=== PATIENT | male | born 1935 | race Caucasian/White ===

== ENCOUNTER → 2016-12-05 | Outpatient (CLI) | payer MEDICARE, BC ==
[~2016-12-05] MED LIST: AMLO5TAB2 PO; ANUS25SU PR; ATOR1TAB21 PO; CLOP75TA2 PO; COZA1TAB PO; FERR325T3 PO; FLAG500T PO; FURO40TA2 PO; GLIP5TAB8 PO; LABE10TAB PO; LABE20TAB PO; LEVA250T PO; PANT40TA2 PO; SODI650T PO; SUCR1TA PO; VITA-122 PO; ZOCO40TA PO
--- NOTE | 2016-12-05 09:19 | REP ---
CT abdomen pelvis without IV or bowel contrast: The patient reportedly has a rising PSA and history of prostate carcinoma. Additionally, the patient has a history of colon resection and is reportedly a dialysis patient. There are no comparison studies. The visualized lung lee are unremarkable. The unenhanced hepatic parenchyma demonstrates a 14 mm hypodensity in the left lobe of the liver, nonspecific, possibly a cyst. The gallbladder, pancreas and spleen are unremarkable. The adrenals are unremarkable. There is renal cortical atrophy of the kidneys bilaterally. There is hydronephrosis and hydroureter bilaterally. No ureteral calculi are identified. There are bilateral renal calculi, likely vascular atheroma. There are bilateral renal parapelvic cysts. There is an exophytic 2.7 cm left renal cortical cyst. The abdominal aorta is unremarkable except for calcified atheroma. There is no retroperitoneal adenopathy. There appears to have been a colectomy with the surgical anastomosis at the rectosigmoid colon. Additionally there is an anastomotic staple ring in the right lower quadrant. There is no bowel distension. Pelvis: There is no ascites or adenopathy. The bladder is collapsed and cannot be further assessed. I suspect there is left iliac adenopathy measuring up to 18 mm and left internal iliac adenopathy measuring up to 15 mm. There is left external iliac adenopathy measuring up to 21 mm. No pelvic ascites is identified. No lytic, blastic or destructive skeletal changes are identified in the lumbar spine or pelvis. 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 Impression: There is left iliac, internal iliac, and external iliac adenopathy in the pelvis. There is no ascites. There is evidence for bowel surgery as described. There is no bowel distension. There is bilateral renal cortical atrophy and bilateral hydronephrosis and hydroureter. No ureteral calcifications are identified. Multiple bilateral renal cysts are noted. There are renal calcifications, likely vascular. There is no bowel distension. There is a small fat-containing umbilical hernia. There is a 14 mm hypodensity in the left lobe of the liver, nonspecific. No evidence of skeletal metastases. Signed by Brian Knight MD 12/05/2016 09:10 A
--- NOTE | 2016-12-05 10:59 | REP ---
Whole body radionuclide bone scan: Whole body imaging is performed in AP and PA projections. Additionally oblique views of the ribs and pelvis are performed in lateral views of the skull are performed. Comparison is 08/18/2012. The focal uptake noted in the right maxillary region previously is no longer present. There is new focal uptake in the posterior arches of the left approximate 7th, 8th and 11th ribs as an interval change. No other rib uptake is identified. There is no calvarial uptake. There is bilaterally symmetric uptake in the shoulders, compatible with degenerative change. There is bilateral symmetric uptake in the sternoclavicular joints, unchanged, and uptake in the sternomanubrial joint, unchanged, likely degenerative uptake. There is uptake along the medial joint lines of the knees bilaterally compatible with osteoarthritis. This has increased from the prior study. There is lumbar scoliosis convex left, unchanged. Impression: New focal uptake in the posterior arches of the left seventh, eighth and eleventh ribs, nonspecific: Post-traumatic versus metastatic. There is a degenerative pattern of uptake in the shoulders, sternoclavicular joints, sternomanubrial joint and knees bilaterally. The study is performed with 114.0 MBq of technetium labeled MDP. Signed by Brian Knight MD 12/05/2016 10:50 A
== END | disposition home or self-care (01) ==
LOC: M RAD 07:35
PROVIDERS: ATTEND Nurse Practitioner Family
DX: C61 Malignant neoplasm of prostate (principal); R97.21 Rising PSA following treatment for malignant neoplasm of prostate; K42.9 Umbilical hernia without obstruction or gangrene; R93.7 Abnormal findings on diagnostic imaging of other parts of musculoskeletal system; N13.30 Unspecified hydronephrosis; N13.4 Hydroureter
CPT/HCPCS: 74176; 78306; A9503

== ENCOUNTER → 2017-03-14 | Outpatient (CLI) | payer MEDICARE, BC ==
--- NOTE | 2017-03-15 11:00 | RADONC ---
RADIATION ONCOLOGY CONSULTATION NOTE: DATE: 03/14/2017 CHART NUMBER: [id number]. DIAGNOSIS: Prostate cancer. STAGE: IV, metastatic. ECOG PERFORMANCE STATUS: Zero CONSULTATION NOTE: Mr. 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 HISTORY OF PRESENT ILLNESS: The patient was in his usual state of health and apparently underwent cryosurgical ablation of his prostate on 05/14/2017 for what was noted to be a Redcrest score 5 adenocarcinoma of the left lobe of the prostate. Since that time, he developed a biochemical recurrence and has been followed by Dr. Blanc. A bone scan was done on 05/29/2017, which showed new focal uptake in the posterior arches of the left 7th, 8th and 11th ribs, which were nonspecific. This was thought either be posttraumatic versus metastatic. The patient reports that he had fallen in the past and broken several of his left ribs. He reports that he has no pain at this time whatsoever and he says he does not know why he is here. The patient's family members also do not seem to understand why he was here. They say that they were told simply that he needs to come and see me in case he needs radiation in the future. PAST MEDICAL HISTORY: The patient's past medical history is positive for hypertension, diabetes, cardiac difficulties and a stroke. He had quadruple bypass in the past. He had a colon resection as well. He has had left knee surgery. ALLERGIES: The patient has NO KNOWN DRUG ALLERGIES. SOCIAL HISTORY: The patient had smoked two packs of cigarettes per day for 40 years. He does not abuse alcohol. FAMILY HISTORY: The patient's family history is negative for prostate cancer or other malignancies. REVIEW OF SYSTEMS: The patient's review of systems is largely noncontributory. He denies nausea, vomiting, fevers, chills, night sweats, diplopia, headaches, anxiety, depression , anorexia, weight loss, visual disturbances, chest pain, urinary or bowel difficulties, bone pain or neurological problems. PHYSICAL EXAMINATION: The patient is a well-developed, well-nourished male in no acute distress. HEENT exam is normocephalic, atraumatic. Extraocular movements are intact. There is no palpable cervical, supraclavicular, infraclavicular, axillary, or inguinal lymphadenopathy present. Lungs are clear to auscultation and percussion. Heart has a regular rate and rhythm. Abdomen is benign with no hepatosplenomegaly, masses, or tenderness. Rectal examination reveals a normal anal sphincter tone. Skeletal examination reveals no tenderness to pressure or percussion of the bony skeleton. Extremities reveal no clubbing, cyanosis, or edema. Neurologic exam is grossly intact, as is the remainder of the physical examination. IMAGING: I have personally reviewed the patient's bone scan done on 12/05/2016, which shows some increased uptake in the left 7th, 8th and 11th ribs. ASSESSMENT: At the present time, the patient reports absolutely no pain whatsoever. Indeed, he is rather confused as to why he is here. I explained to the patient and his family that radiation at this point would be palliative in nature. In light of the fact that there does not seem to be anything to palliate, I have not scheduled him for any treatment at this time. I have set up the patient for routine followup in our office in 6 months' time. I explained to the patient the need to contact me should any pain develop as it may be advantageous to treat any weightbearing bones or the ribs, which are rather small and can fracture easily early rather than wait for a fracture, at which case the quality of life will be diminished. I have given the patient my office number as well as cell phone number. In addition, we have given the patient the appointment as mentioned above. In the meantime, he will continue his close management and followup with his urologist, Dr. Blanc. cc: MD Naresh Tolentino MD *[facility]
== END ==
LOC: M ONCR 13:55
PROVIDERS: ATTEND Radiology Radiation Oncology
DX: C61 Malignant neoplasm of prostate (principal)

== ENCOUNTER → 2017-05-06 | Outpatient (CLI) | payer MEDICARE, BC ==
[~2017-05-06] MED LIST changes: +LEVA1TAB PO; -LEVA250T PO
[2017-05-06 09:46] LABS: MEAN CORPUSCULAR HEMOGLOBIN 29.8 pg (27.0-33.0); MEAN CORPUSCULAR VOLUME 90.4 fl (80.0-96.0); RED CELL DISTRIBUTION WIDTH 15.8 % (11.5-14.5); WHITE BLOOD COUNT 6.5 K/mm3 (4.0-10.0)
--- NOTE | 2017-05-06 10:43 | REP ---
REASON FOR EXAM: History of prostate carcinoma. Comparison exam 02/24/2017 also without contrast. The lack of intravenous contrast decreases the sensitivity of the exam. There are small bilateral pleural effusions which have developed since the last abdominal CT. Limited evaluation of the liver, gallbladder, spleen, pancreas, and adrenal glands show no changes from the prior exam and no evidence of acute disease. There is a small simple cyst in the lateral segment of the left lobe of the liver status quo. There is a stable low density nodule in the left adrenal gland which has been stable since 2013. There is unchanged right sided hydronephrosis and hydroureter. There is slightly increased left sided hydronephrosis and hydroureter. There are unchanged bilateral renal calcifications. There is a left renal cyst which has increased in size from 09/08/2014 but is unchanged from 12/05/2016. There is atherosclerotic change in the abdominal aorta status quo. There is para-aortic adenopathy unchanged from 02/24/2017 but representing a significant change from 12/05/2016. The bowel loops and mesenteries are within normal limits. No free fluid or free air is seen in the abdomen. CT PELVIS: There is left-sided pelvic side wall adenopathy stable from the last two prior exams 02/24/2017 and 12/05/2016 but representing a significant change from 09/08/2014. No free fluid or free air is seen in the pelvis. The pelvic bowel loops are unremarkable with the exception of already noted postoperative changes. Bone window technique throughout the exam shows chronic spinal and hip degenerative changes with bilateral L5 spondylolysis status quo. There is no CT evidence of interim development of a lytic or blastic lesion. There is an unchanged subcentimeter sized sclerotic density in the left ileum. That, however, represents a change from the 09/08/2014 exam. IMPRESSION: 1. Bilateral chronic renal changes as described above. 2. Retroperitoneal and pelvic adenopathy as described above. 3. Tiny focus of suspected skeletal blastic metastasis in the left ileum as described above. This needs to be correlated clinically with consideration made for followup with conventional bone scintigraphy. 4. Bilateral pleural effusions. 5. Other findings as described above. Signed by Sorin Eduardo DO 05/06/2017 11:01 A
--- NOTE | 2017-05-06 11:14 | REP ---
REASON: History of prostate cancer. COMPARISON: 03/12/2016 from [facility]. The lack of intravenous contrast decreases the sensitivity of the exam. Limited evaluation of the mediastinum and pulmonary phyllis show multiple nonenlarged lymph nodes which have increased in size from the prior exam. These are particular to the aortic pulmonary window and subcarinal region. There are bilateral pleural effusions which are small and represent a change from the prior exam. There is no pericardial effusion. Bone window technique throughout the exam shows spinal degenerative changes status quo. Seen in multiple thoracic vertebral bodies, focal areas of sclerosis are noted particularly in the posterior aspect of L1 on the right measuring 1.9 cm and representing a change from the prior exam. Evaluation of the lung lee show scattered basilar fibrotic changes status quo without evidence of interim development of a spiculated hepatic lesion or significant nodule which could be obscured by the aforementioned pleural effusions. IMPRESSION: 1. Although there is no evidence of arjun mediastinal or hilar adenopathy, there are multiple borderline mediastinal lymph nodes which have increased in size from the prior chest CT of 03/12/2016. This needs to be correlated clinically with appropriate followup. 2. Bilateral pleural effusions. 3. Lung field changes as described above. There is no revised Fleischner Society criteria on the recommendation for followup of such lung parenchymal findings. 4. Evidence of skeletal blastic metastasis as described above which could be better evaluated with conventional bone scintigraphy. 5. Other findings as described above. Signed by Sorin Eduardo DO 05/06/2017 11:15 A
[2017-05-06 11:38] LABS: ALBUMIN/GLOBULIN RATIO 0.77 (1.00-1.93); BILIRUBIN,TOTAL 0.6 MG/DL (0.2-1.0); CALCIUM LEVEL 8.3 MG/DL (8.8-10.2); CREATININE FOR GFR 6.89 MG/DL (0.70-1.30); GLOMERULAR FILTRATION RATE 8.3 (>35); POTASSIUM SERUM 3.9 MEQ/L (3.5-5.1); TOTAL PROTEIN 6.9 GM/DL (6.4-8.2)
--- NOTE | 2017-05-06 12:58 | REP ---
Whole body radionuclide bone scan: History: History of prostate carcinoma. Comparison study December 05, 2016. Comparison is also made with chest CT study from May 06, 2017. Scintigraphic findings: 22.0 mCi technetium 99m MDP is injected and standard whole body bone scan imaging was acquired. Scintigraphic findings: There is a normal distribution of skeletal tracer with uptake in bilateral kidneys and in the urinary bladder. Findings: There is a linearly adjacent uptake involving the left 8th through 11th ribs posteriorly consistent with healing fractures. There is one additional focus of increased uptake in the lateral aspect of the left 11th rib. This is not a pattern suspicious for hematogenous metastasis. Degenerative uptake is seen in the thoracic lumbar and cervical spine as before. There is no evidence of new scintigraphic area of increased uptake in the L1 vertebral body to correspond with the recent CT finding. There is osteoarthritic uptake in the medial compartment of each knee. No suspicious skeletal uptake is appreciated. Impression: Findings consistent with healing left posterior rib fractures. No evidence to suggest skeletal metastatic disease. Signed by Shai Ramos MD 05/06/2017 03:49 P
== END ==
LOC: M RAD 08:53
PROVIDERS: ATTEND Urology
DX: Z85.46 Personal history of malignant neoplasm of prostate (principal); R59.9 Enlarged lymph nodes, unspecified; J90 Pleural effusion, not elsewhere classified; S22.42XD Multiple fractures of ribs, left side, subsequent encounter for fracture with routine healing; R93.7 Abnormal findings on diagnostic imaging of other parts of musculoskeletal system; X58.XXXD Exposure to other specified factors, subsequent encounter; Y92.9 Unspecified place or not applicable; Y93.9 Activity, unspecified; Y99.9 Unspecified external cause status
CPT/HCPCS: 36415; 71250; 74176; 78306; 80053; 84153; 85027; A9503

== ENCOUNTER → 2017-09-23 | Outpatient (REF) | payer MEDICARE, BC ==
[2017-09-23 16:19] LABS: MEAN CORPUSCULAR HEMOGLOBIN 28.6 pg (27.0-33.0); MEAN CORPUSCULAR HGB CONC 31.2 g/dl (32.0-36.5); MEAN CORPUSCULAR VOLUME 91.8 fl (80.0-96.0); PLATELET COUNT, AUTOMATED 195 10^3/uL (150-450); RED CELL DISTRIBUTION WIDTH 18.8 % (11.5-14.5); WHITE BLOOD COUNT 6.5 10^3/uL (4.0-10.0)
[2017-09-23 21:59] LABS: ALBUMIN 2.6 GM/DL (3.2-5.2); ALBUMIN/GLOBULIN RATIO 0.58 (1.00-1.93); ALKALINE PHOSPHATASE 156 U/L (45-117); ALT/SGPT 8 U/L (12-78); ANION GAP 10 MEQ/L (8-16); AST/SGOT 11 U/L (7-37); BILIRUBIN,TOTAL 0.5 MG/DL (0.2-1.0); BLOOD UREA NITROGEN 50 MG/DL (7-18); CALCIUM LEVEL 8.8 MG/DL (8.8-10.2); CARBON DIOXIDE LEVEL 33 MEQ/L (21-32); CHLORIDE LEVEL 94 MEQ/L (98-107); CREATININE FOR GFR 5.12 MG/DL (0.70-1.30); GLOMERULAR FILTRATION RATE 11.6 (>35); GLUCOSE, FASTING 92 MG/DL (83-110); POTASSIUM SERUM 4.3 MEQ/L (3.5-5.1); SODIUM LEVEL 137 MEQ/L (136-145); TOTAL PROTEIN 7.1 GM/DL (6.4-8.2)
== END ==
LOC: M LABDRAW1 15:40
PROVIDERS: ATTEND Internal Medicine Cardiovascular Disease
DX: I20.0 Unstable angina (principal)

== ENCOUNTER 2017-09-26 14:22 | Outpatient (CLI) | payer MEDICARE, BC ==
[2017-09-26] VITALS (9 sets, daily range): BP systolic 126–149; BP diastolic 59–79
[~2017-09-26] VITALS: Ht 167.6 cm; Wt 71.7 kg
[2017-09-27 00:25] VITALS: BP 136/73
== END 2017-09-27 01:54 ==
LOC: M OPCLI4PV 14:22 → M MSPAV 14:31 → M OPCLI4PV 09-27 01:54
PROVIDERS: ATTEND Internal Medicine Nephrology
DX: D62 Acute posthemorrhagic anemia (principal); Z79.899 Other long term (current) drug therapy; Z79.84 Long term (current) use of oral hypoglycemic drugs
CPT/HCPCS: 36415; 36430; 86850; 86900; 86901; 86920; P9016

== ENCOUNTER → 2017-11-04 | Outpatient (CLI) | payer MEDICARE, BC ==
[2017-11-04 15:07] LABS: HEMATOCRIT 35.3 % (42.0-52.0); HEMOGLOBIN 11.5 g/dl (14.0-18.0); MEAN CORPUSCULAR HEMOGLOBIN 31.9 pg (27.0-33.0); MEAN CORPUSCULAR HGB CONC 32.6 g/dl (32.0-36.5); MEAN CORPUSCULAR VOLUME 98.1 fl (80.0-96.0); PLATELET COUNT, AUTOMATED 155 10^3/uL (150-450); RED CELL DISTRIBUTION WIDTH 20.2 % (11.5-14.5)
[2017-11-04 15:31] LABS: ALBUMIN 3.2 GM/DL (3.2-5.2); ALBUMIN/GLOBULIN RATIO 0.74 (1.00-1.93); ALKALINE PHOSPHATASE 199 U/L (45-117); ALT/SGPT 12 U/L (12-78); ANION GAP 10 MEQ/L (8-16); AST/SGOT 18 U/L (7-37); BILIRUBIN,TOTAL 0.8 MG/DL (0.2-1.0); BLOOD UREA NITROGEN 45 MG/DL (7-18); CARBON DIOXIDE LEVEL 34 MEQ/L (21-32); CHLORIDE LEVEL 93 MEQ/L (98-107); CREATININE FOR GFR 5.62 MG/DL (0.70-1.30); FREE T4 1.13 NG/DL (0.76-1.46); GLOMERULAR FILTRATION RATE 10.4 (>35); GLUCOSE, FASTING 109 MG/DL (83-110); POTASSIUM SERUM 5.1 MEQ/L (3.5-5.1); SODIUM LEVEL 137 MEQ/L (136-145); TOTAL PROTEIN 7.5 GM/DL (6.4-8.2)
== END ==
LOC: M LAB 14:25
DX: I49.1 Atrial premature depolarization (principal); I50.42 Chronic combined systolic (congestive) and diastolic (congestive) heart failure; J98.11 Atelectasis; J90 Pleural effusion, not elsewhere classified; I51.7 Cardiomegaly
CPT/HCPCS: 71046

== ENCOUNTER → 2017-12-04 | Outpatient (CLI) | payer MEDICARE, BC | LOC: M CARPUL 11:03 | DX: J44.9 Chronic obstructive pulmonary disease, unspecified (principal) | CPT/HCPCS: 71046 ==